=== PATIENT | female | born 1930 | race Caucasian/White ===

== ENCOUNTER → 2016-10-16 | Outpatient (CLI) | payer MEDICARE, OTHER ==
--- NOTE | 2016-10-16 15:51 | RADRPT ---
PROCEDURE: I- 131 therapy CLINICAL INDICATION: 85 -year-old patient with hyperthyroidism, for I - 131 ablation. TECHNIQUE: On October 16, 2016, 27.1 mCi of I - 131 were administered orally to the patient. COMPARISON: No prior treatments. FINDINGS: The patient was advised about the nature of the treatment, alternatives, benefits, risks, side effec ts in radiation safety precautions. Written informed consent was obtained. No immediate complications were observed. IMPRESSION: 27.1 mCi of oral I - 131 therapy. RPTAT: QQ .Mena Rosales MD, MD Date Time Electronically viewed and signed by .Mena Rosales MD, on 10/16/2016 15:50 .L/
== END | disposition home or self-care (01) ==
LOC: NUC 13:18
PROVIDERS: ATTEND Internal Medicine
DX: E03.9 Hypothyroidism, unspecified (principal)
CPT/HCPCS: 79005; A9517